=== PATIENT | female | born 1945 | race Caucasian/White ===

== ENCOUNTER 2021-02-01 19:55 | Inpatient (IN) | payer MEDICARE, MEDICAID ==
[~2021-02-01] VITALS: Ht 157.5 cm; Wt 73.0 kg
[2021-02-05 14:39] VITALS: BP 92/59
== END 2021-02-05 15:15 | disposition home or self-care (01) | DRG 380 ==
LOC: ED 20:30 → EDIP 23:15 → CCU 02-02 12:08 → 3N 02-03 13:19
PROVIDERS: ADMIT Internal Medicine; ATTEND Family Medicine
PROC: 30233N1 Transfusion of Nonautologous Red Blood Cells into Peripheral Vein, Percutaneous Approach (ICD-10-PCS; principal; 2021-02-01)
PROC: 0D778ZZ Dilation of Stomach, Pylorus, Via Natural or Artificial Opening Endoscopic (ICD-10-PCS; 2021-02-02)
PROC: 0DB68ZX Excision of Stomach, Via Natural or Artificial Opening Endoscopic, Diagnostic (ICD-10-PCS; 2021-02-02)
DX: K31.1 Adult hypertrophic pyloric stenosis (principal); K25.4 Chronic or unspecified gastric ulcer with hemorrhage; R57.8 Other shock; D62 Acute posthemorrhagic anemia; Z66 Do not resuscitate; M85.80 Other specified disorders of bone density and structure, unspecified site; Z20.822 Contact with and (suspected) exposure to COVID-19; D72.828 Other elevated white blood cell count; E78.5 Hyperlipidemia, unspecified; F17.210 Nicotine dependence, cigarettes, uncomplicated; F41.9 Anxiety disorder, unspecified; G89.29 Other chronic pain; I10 Essential (primary) hypertension; J44.9 Chronic obstructive pulmonary disease, unspecified; K21.9 Gastro-esophageal reflux disease without esophagitis; K22.2 Esophageal obstruction; R09.02 Hypoxemia; I08.1 Rheumatic disorders of both mitral and tricuspid valves; W18.2XXA Fall in (into) shower or empty bathtub, initial encounter; Y92.89 Other specified places as the place of occurrence of the external cause; Y99.8 Other external cause status; Z74.01 Bed confinement status; Z79.891 Long term (current) use of opiate analgesic; Z82.3 Family history of stroke; Y93.E1 Activity, personal bathing and showering; Z88.6 Allergy status to analgesic agent; Z88.8 Allergy status to other drugs, medicaments and biological substances